=== PATIENT | female | born 1950 | race Caucasian/White ===

== ENCOUNTER 2018-02-21 21:20 | Emergency (ER) | payer MEDICARE, MEDICAID ==
[~2018-02-21] VITALS: Ht 152.4 cm; Wt 84.5 kg
[2018-02-21] MEDS ORDERED: GLUCOPHAGE500 MG/TAB PO (21:32)
[2018-02-21] MEDS ORDERED: SYNTHROID0.05 MG PO (21:33)
[2018-02-21] MEDS ORDERED: PRILOSEC OTC20 MG PO (21:33)
[2018-02-21] MEDS ORDERED: B COMPLEX1 EACH PO (21:34)
[2018-02-21] MEDS ORDERED: TOLTERODINE TART4 MG PO (21:34)
[2018-02-21] MEDS ORDERED: PRAVASTATIN SOD10 MG PO (21:34)
[2018-02-21] MEDS ORDERED: VENLAFAXINE HYD75 MG PO (21:34)
[2018-02-21] MEDS ORDERED: VITAMIN C500 M7 PO (21:35)
[2018-02-21] MEDS ORDERED: ZESTRIL20 M1 PO (21:35)
[2018-02-21] MEDS ORDERED: ADULT ASPIRIN R81 MG PO (21:35)
[2018-02-21 22:13] LABS: BASO # 0.1 (0.02-0.10); EOS # 0.1 (0.04-0.40); EOS % 0.6 % (1.0-5.0); HEMATOCRIT 40.9 % (37.0-47.0); HEMOGLOBIN 13.6 g/dL (12.5-16.0); LYMPH# 2.7 (1.50-4.00); MEAN CELL VOLUME 94 fl (78-100); MEAN CORPUSCULAR HEMOGLOBIN 31 pg (27-31); MEAN CORPUSCULAR HGB CONC 33 g/dL (33-37); MEAN PLATELET VOLUME 11.7 fl (7.4-10.4); MONO # 0.8 (0.20-0.80); NEU # 4.8 (1.40-6.50); PLATELET COUNT 206 K/mm3 (130-400); RED BLOOD COUNT 4.36 M/mm3 (4.10-5.30); RED CELL DISTRIBUTION WIDTH 12.3 % (11.5-14.5); WHITE BLOOD COUNT 8.5 K/mm3 (4.8-10.8)
[2018-02-21 22:21] LABS: BUN/CREATININE RATIO 16.9 (6.0-26.0); POTASSIUM 4.2 mmol/L (3.6-5.0)
[2018-02-21 22:25] LABS: URINE APPEARANCE CLEAR; URINE BILIRUBIN NEGATIVE (NEGATIVE); URINE BLOOD NEGATIVE (NEGATIVE); URINE COLOR YELLOW; URINE GLUCOSE NEGATIVE (NEGATIVE); URINE KETONE NEGATIVE (NEGATIVE); URINE LEUKOCYTE ESTERASE 2+ (NEGATIVE); URINE NITRATE POSITIVE (NEGATIVE); URINE PROTEIN(semi-quant) TRACE mg/dL (NEGATIVE); URINE UROBILINOGEN NORMAL (NORMAL); URINE WBC 16-30 /hpf (0-3)
[2018-02-22] MEDS ORDERED: MACROBID 100 M100 MG PO (00:23)
[2018-02-22] MEDS ORDERED: NORCO 325 MG-51 TA1 PO (00:23)
[2018-02-22 00:45] VITALS: BP 151/95
== END 2018-02-22 00:45 | disposition home or self-care (01) ==
LOC: ED 21:20
PROVIDERS: Family Medicine
DX: R10.9 Unspecified abdominal pain (principal); N39.0 Urinary tract infection, site not specified; E11.9 Type 2 diabetes mellitus without complications; I10 Essential (primary) hypertension; Z90.49 Acquired absence of other specified parts of digestive tract; Z90.710 Acquired absence of both cervix and uterus; Z79.84 Long term (current) use of oral hypoglycemic drugs; Z79.82 Long term (current) use of aspirin; Z87.442 Personal history of urinary calculi
CPT/HCPCS: J0595; J0696; J1885; J2405; J7030; Q9967